=== PATIENT | male | born 1990 | race Caucasian/White ===

== ENCOUNTER 2020-10-12 14:41 | Emergency (ER) | payer MEDICAID, SELFPAY ==
--- NOTE | 2020-10-12 15:00 | XR_ITS ---
PROCEDURE: XR LUMBAR SPINE 2-3V CLINICAL INDICATION: pain COMPARISON: No exams were available for comparison FINDINGS: No fracture or dislocation. No lytic or blastic change. There is normal mineralization. The joint spaces are well-preserved. No significant degenerative/arthritic changes. No erosive changes evident. Other findings:None. IMPRESSION: No acute findings. Dictated by: Piero Mckeon MD 10/12/2020 15:37 Piero Mckeon MD in [place] 10/12/2020 15:37
[2020-10-12 15:31] VITALS: BP 121/86; PULSE 64; RESP 16; TEMP 36.6; O2SAT 99; BMI 40.7
--- NOTE | 2020-10-12 15:38 | HMH.EDUTC ---
[facility] Disposition Clinical Impression: Low back pain Qualifiers: Chronicity: unspecified Back pain laterality: midline Sciatica presence: without sciatica Qualified Code(s): M54.5 - Low back pain Eczema Qualifiers: Eczema type: other Qualified Code(s): L30.8 - Other specified dermatitis Disposition: Home, Self-Care Condition on Discharge: Good Instructions: Eczema, DI for Low Back Pain, Triamcinolone Topical Additional Instructions: Apply cream to rash on abdomen as prescribed Over the counter Lotions for eczema may help with prevention of future irritations Take medication as prescribed *Ibuprofen leatha 6 hours with meal as needed for pain/inflammation *Not additional anti-inflammatory like motrin, aleve, advil with the above amount of ibuprofen. You can still take Tylenol every 4 hours as needed if you need something else for pain *Ice 20 minutes every 2 hours for the first 48 hours after the initial injury followed by moist heat every 20 minutes 3-4 times a day to affected area *Muscle relaxer as prescribed as needed for muscle spasms but remember, it WILL cause drowsiness You cannot take it and drive, operate machinery or care for small children. *Keep this area active, no movement leads to more stiffness, However take it easy and avoid heavy lifting pushing or pulling *Follow up with you family doctor if no improvement for further treatment Prescriptions: Ibuprofen [Ibuprofen 600mg Tablet] 600 mg PO Q6HP PRN #20 tab PRN Reason: Moderate Pain Prescription Printed methocarbamoL [Methocarbamol 500mg Tablet] 500 mg PO BID PRN #10 tab PRN Reason: Muscle Spasm Prescription Printed Referrals: Provider,Referral, MD [Primary Care Provider] - As needed Forms: Work/School Release Time of Disposition: 16:00 Medical Decision Making - [place] Inquiry Pt receiving controlled substance: No [place] was queried for this patient: No Vital Signs: 10/12/20 15:31 10/12/20 16:05 Temperature 97.9 F 98 F Temperature Source Oral Pulse Rate 68 Pulse Rate [Right Brachial] 64 Respiratory Rate 16 16 Blood Pressure 129/84 Blood Pressure [Right Arm] 121/86 Blood Pressure Mean [Right Arm] 97 02 Sat by Pulse Oximetry 99 - Radiology Data #1 Image(s): L-Spine Image Reviewed: Yes I reviewed the patient's radiology image, Yes I have reviewed radiologist's interpretation Preliminary Findings: No Fracture Seen [facility] HPI - General Stated complaint: AO [id number] lower back pain Time Seen by Provider: 10/12/20 15:38 Mode of Arrival: Family Vehicle Description of Symptoms (Recalled from Triage Doc. by RN): Pt c/o lower back pain. No accident. Rash on lower abd on and off for 2 weeks. 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 State that he thinks he may have pulled a muscle in his lower back States that certain ways he moves has pain States that pain is worse at times with certain ways he moves denies known injury and denies problems with urination States that also he has a rash on his abdomen State that at times it get dry and itchy States that he has used over the counter lotions and creams and it has not helped - Related Data Previous Rx's Medication Instructions Recorded Ibuprofen [Ibuprofen 600mg 600 mg PO Q6HP PRN #20 tab 10/12/20 Tablet] methocarbamoL [Methocarbamol 500mg 500 mg PO BID PRN #10 tab 10/12/20 Tablet] Allergies Allergy/AdvReac Type Severity Reaction Status Date / Time No Known Allergies Allergy Verified 02/04/18 15:17 - Worker's Comp Is this a Worker's Comp case?: No [facility] History - Hepatitis A Screen Drug use history?: No High risk sexual behaviors?: No History of sexu
[2020-10-12 16:05] VITALS: BP 129/84; PULSE 68; RESP 16; TEMP 36.6
== END 2020-10-12 16:05 | disposition home or self-care (01) ==
PROVIDERS: Emergency Provider Nurse Practitioner
DX: M54.5 Low back pain (principal); L30.8 Other specified dermatitis
CPT/HCPCS: 72100; 99202; G0463

== ENCOUNTER 2024-09-05 21:10 | Emergency (ER) | payer MEDICAID, SELFPAY ==
--- NOTE | 2024-09-05 21:19 | XR_ITS ---
PROCEDURE INFORMATION: Exam: XR Right Hand Exam date and time: 09/05/2024 9:27 PM Age: 34 years old Clinical indication: Injury or trauma; Other: Looking for small metal wire; Puncture; Finger; Right; Thumb; Additional info: Eval foreign body in R thumb, distal TECHNIQUE: Imaging protocol: Radiologic exam of the right hand. Views: 3 or more views. COMPARISON: No relevant prior studies available. FINDINGS: Bones/joints: No acute fracture or malalignment. Chronic posttraumatic changes of the 5th metacarpal. Soft tissues: 4 mm bb within the 1st intermetacarpal space soft tissues. IMPRESSION: 4 mm bb within the 1st intermetacarpal space soft tissues. No acute osseous findings.
--- NOTE | 2024-09-05 21:19 | ED_ITS ---
Discharge Plan Disposition Patient Disposition: Home, Self-Care Prescriptions Prescriptions: New cefadroxil 500 mg capsule 500 mg PO BID 5 Days Qty: 10 0RF No Action methocarbamol 500 MG tablet 500 mg PO BID PRN (Reason: Muscle Spasm) Qty: 10 0RF ibuprofen 600 MG tablet 600 mg PO Q6HP PRN (Reason: Moderate Pain) Qty: 20 0RF Referrals Follow up/Referrals: Provider,Referral, MD [Primary Care Provider] - See instructions Activity Restrictions/Add. Instructions Additional Instructions/Restrictions: Take antibiotics as prescribed. Take Tylenol and ibuprofen as needed for pain. Follow-up with primary care doctor. Please return emerged part with any new, concerning, worsening symptoms. Clinical Impressions Clinical Impression: Injury of thumb, right Qualifiers: Encounter type: initial encounter Qualified Code(s): S69.91XA - Unspecified injury of right wrist, hand and finger(s), initial encounter Instructions Patient Instructions: DI for Skin Abscess Print Language Print Language: Italian Discharge ED Provider: Philip Florez General Adult HPI General Chief complaint: Skin/Abscess/Foreign Body Stated complaint: AO 09/05/24 1700 Metal in right thumb Time Seen by Provider: 09/05/24 21:15 History of Present Illness HPI narrative: This is an otherwise healthy 34-year-old male who presents with concern for right thumb injury. States that he was pushing a tire up a hill whenever he thinks a piece of metal went into his right thumb. He could see some of it sticking out and he pulled part of it out but thinks another piece broke off and is still stuck in his thumb. Denies any other injuries. Related Data Previous Rx's ?Medication ?Instructions ?Recorded ibuprofen 600 mg tablet 600 mg PO Q6HP PRN Moderate Pain 10/12/20 #20 tabs methocarbamol 500 mg tablet 500 mg PO BID PRN Muscle Spasm #10 10/12/20 tabs cefadroxil 500 mg capsule 500 mg PO BID 5 days #10 caps 09/05/24 Allergies Allergy/AdvReac Type Severity Reaction Status Date / Time No Known Allergies Allergy Verified 02/04/18 15:17 [facility] Disclaimer: The information contained in this section may have been updated after the patient was seen, as this information can be updated by other users. Social History Smoking Status: Never smoker alcohol intake: never current occupational status: employed Travel in the last 8 weeks: None household members: family housing: house Have you lived/traveled outside [place] in past 30 days?: No Contact w/someone who lives/traveled outside [place] past 30 days?: No Exposure to someone with infectious disease in past 14 days?: No Do you have a fever (greater than 100.4 F or 38 C)?: No Have you tested positive for COVID-19: No Exposed to someone with COVID-19 in past 14 days?: No Do you have a sore throat?: No Do you have a cough?: No Do you have any weakness?: No Do you have any diarrhea?: No Are you experiencing any unusual bleeding?: No Do you have any muscle aches/pain?: No Do you have any abdominal pain?: No Are you experiencing loss of taste or smell?: No ROS Obtained: Yes All systems reviewed & no additional complaints except as documented Physical Exam General General appearance: alert and in no apparent distress Eye Eye exam: Present normal appearance, PERRL and EOMI Respiratory Respiratory exam: Present normal lung sounds bilaterally; Absent respiratory distress Cardiovascular Cardiovascular exam: Present regular rate and normal rhythm Abdominal Exam Abdominal exam: Present soft and distention; Absent tenderness, guarding or rebound Extremities Exam Extremities exam: Present other (R hand: Small puncture wound in the distal aspect of his right thumb. Associated soft tissue swelling. Decreased range of motion due to pain. No deformity) Neurological Exam Neurological exam: Present alert and oriented X3 Skin Skin exam: Present warm and dry Medical Decision Making Medical Records Medical records reviewed: Yes I reviewed the patient's medical records. Screening: Per USPSTF and CDC recommendations, given the prevalence of disease in our region, it is our hospital?s policy to screen for HIV and viral Hepatitis for all patients aged 18 and over and those with ongoing risk factors. [place] Inquiry Pt receiving controlled substance: No Vital Signs: 09/05/24 21:21 Temperature 98.9 F Temperature Source Oral Pulse Rate [Radial] 64 Respiratory Rate 18 Blood Pressure [Right Arm] 145/91 H Blood Pressure Mean [Right Arm] 109 Blood Pressure Position [Right Arm] Sitting 02 Sat by Pulse Oximetry 98 Oxygen Delivery Method Room Air Orders (Tests/Meds): ORDERS Category Date Time Status Hand XR right minimum 3 views [XR hand RT min 3V] Stat Exams 09/05/24 21:19 Taken Medical Decision Narrative: This is a otherwise healthy 34-year-old male who presents with concern for an injury to his right thumb. On arrival, hemodynamically stable, nontoxic- appearing. Differential diagnose includes but is not limited to retained foreign body, fracture, dislocation, soft tissue injury. X-ray imaging was obtained and independently interpreted by me, revealing no obvious foreign bodies or acute osseous pathology. Patient was ultimately discharged in stable condition. Given a 5-day course of Duricef given penetrating thumb injury. Critical Care Critical Care Time Critical Care Time: No
[2024-09-05 21:21] VITALS: BP 145/91; PULSE 64; RESP 18; TEMP 37.2; O2SAT 98
--- NOTE | 2024-09-05 22:54 | PC.NURSE ---
Patient is requesting to leave. Informed him we are waiting on his hand xray. Dr. Florez speaking with patient. to send order to outpatient script and I notified patient if hand xray was abnormal we would call and notify him. I confirmed phone number in chart. patient agreeable to plan of care.
[2024-09-05 23:02] VITALS: BP 112/62; PULSE 62; RESP 14; TEMP 36.6; O2SAT 98
== END 2024-09-05 23:03 | disposition home or self-care (01) ==
PROVIDERS: Emergency Provider Student in an Organized Health Care Education/Training Program
DX: S60.351A Superficial foreign body of right thumb, initial encounter (principal); S69.91XA Unspecified injury of right wrist, hand and finger(s), initial encounter; X58.XXXA Exposure to other specified factors, initial encounter; Y93.89 Activity, other specified; Y92.9 Unspecified place or not applicable
CPT/HCPCS: 73130; 99283